=== PATIENT | male | born 1960 | race African-American/Black ===

== ENCOUNTER 2017-02-19 19:42 | Emergency (ER) | payer OTHER ==
--- NOTE | 2017-02-19 20:45 | ED Physician Chart ---
Chief Complaint/HPI - Patient Information Date Seen:: 02/19/17 Time Seen:: 19:53 Chief Complaint:: Pain and swelling noticed in R wrist region for about 4 days. 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 Pt has had above symptoms as above on awakening about 4 days ago. No fever. No known injury or trauma. Symptoms can be aggravated with R wrist movements. NO weakness or numbness. Allergies:: Allergies Allergy/AdvReac Type Severity Reaction Status Date / Time erythromycin base Allergy Verified 02/19/17 19:43 Vitals:: Vital Signs - 8 hr 02/19/17 19:44 Temp 98.8 F HR 76 RR 18 BP 146/76 O2 Sat % 100 Historian:: Patient Family MD/PCP:: Dr. Payan LMP:: N/A Review:: Nurse's Note Reviewed Review of Systems - Review of Systems General/Constitutional: No fever, No chills, No weight loss, No weakness, No diaphoresis, Edema (mild edema at R wrist region.), No loss of appetite Skin: No skin lesions, No rash, No bruising Head: No headache, No light-headedness Eyes: No loss of vision, No pain, No diplopia ENT: No earache, No nasal drainage, No sore throat, No tinnitus Neck: No neck pain, No swelling, No thyromegaly, No stiffness, No mass noted Cardio Vascular: No chest pain, No palpitations Pulmonary: No SOB, No cough, No wheezing GI: No nausea, No vomiting, No diarrhea, No pain G/U: No dysuria, No frequency, No hematuria Musculoskeletal: Bone or joint pain (R wrist), No back pain Endocrine: No polyuria, No polydipsia Psychiatric: Prior psych history, No depression, No suicidal ideation, No homicidal ideation, No auditory hallucination, No visual hallucination Hematopoietic: No bruising, No lymphadenopathy Allergic/Immuno: No urticaria, No angioedema Neurological: No syncope, No focal symptoms, No weakness, No paresthesia, No headache, No seizure, No dizziness, No confusion, No vertigo Past Medical History - Past Medical History Past Medical History: HTN Family History: Diabetes Melitus (MGM), HTN (Mother, brother) Social History: Non Smoker, No Alcohol, No Drug Use, , Employed, Other ( Lives with his .) Employment:: Nurse Surgical History: other (lipoma removed about 16 y/a. R knee arthoscopic surgery about 21 y/a. ?abdominal surgery related to a venous condition about 39 y/a.) Psychiatricy History: Depression Medication: Reviewed Family Medical History - Family Member Mother Name:: MICHAELA Age: 73 Ethnicity: Non- Living Status: Still Living Hx Family Cancer: No Hx Family Coronary Artery Disease: No Hx Family Congestive Heart Failure: No Hx Family Hypertension: Yes Hx Family Stroke: No Hx Family Diabetes: No Hx Family Seizures: No Hx Family Dementia: No Hx Family AIDS: No Hx Family HIV: No Hx Family COPD: No Hx Family Hepatitis: No Hx Family Psychiatric Problems: No Hx Family Tuberculosis: No Physical Exam - Physical Examination General/Constitutional: Awake, Well-developed, well-nourished, Alert, No distress, GCS 15, Non-toxic appearing, Ambulatory Other Gen/Cons comments:: Breathes comfortably, speaks clearly, interacts normally, and ambulates without difficulty. Head: Atraumatic Eyes: Lids, conjuctiva normal, PERRL, EOMI Skin: Nl inspection, No rash, No skin lesions, No ecchymosis, Well hydrated, No lymphadenopathy ENMT: External ears, nose nl, Nasal exam nl, Lips, teeth, gums nl, Oropharynx nl Neck: Nontender, Full ROM w/o pain, No nuchal rigidity, No mass, No stridor Respiratory: Nl effort/Exclusion, Clear to Auscultation, No Wheeze/Rhonchi/Rales Cardio Vascular: RRR, No murmur, gallop, rubs GI: No tenderness/rebounding/guarding, No organomegaly, No hernia, Normal BS's, Nondistended, No mass/bruits Other GI comments:: Obese but soft. Other Extremities comments:: RUE: Mild tendernes lateral aspect of distal forearm/wrist. Slight decrease ROM of R wrist due to pain. No gross deformity, erythema, open wound, unusual warmth , crepitus, or definite swelling. No detectable motor/sensory/vascular deficit. Good distal pulse and capillary refill. Neuro/Psych: Alert/oriented (oriented x 3), Judgement/insight normal, Mood normal, Normal gait, No focal deficits Labs/Radiology/EKG Results - Lab Results Results: Laboratory Results - last 24 hr 02/19/17 02/19/17 20:02 20:02 WBC 7.3 RBC 4.47 Hgb 14.5 Hct 42.9 MCV 95.9 MCH 32.4 H MCHC Differential 33.8 RDW 13.3 Plt Count 263 MPV 8.0 Neutrophils % 68.9 Lymphocytes % 18.9 L Monocytes % 8.8 Eosinophils % 3.4 Basophils % 0.0 Sodium 136 Potassium 3.8 Chloride 106 Carbon Dioxide 26.1 Anion Gap 7.7 BUN 18 Creatinine 1.4 H Est GFR ( Amer) > 60.0 Est GFR (Non-Af Amer) 55.9 BUN/Creatinine Ratio 12.9 Glucose 92 Calcium 10.4 H Total Bilirubin 1.0 AST 17 ALT 23 Alkaline Phosphatase 63 Total Protein 7.3 Albumin 4.2 Globulin 3.1 Albumin/Globulin Ratio 1.4 - Radiology Results Results: R wrist X-ray (4v.): Based on my interpretation, no acute fx or subluxation. Official report is pending. ED Septic Shock - . Is Septic Shock (SBP<90, OR Lactate>4 mmol\L) present?: No - <6hrs of presentation: Vital Signs: Vital Signs - 8 hr 02/19/17 19:44 Temp 98.8 F HR 76 RR 18 BP 146/76 O2 Sat % 100 Reassessment (Disposition) - Reassessment Reassessment:: 2140 Pt overall feels better. Lab results and R wrist X-ray just became available. Lab and X-ray findings have been reviewed with pt. Pt states that his creatinine is usually at 1.4 because he is muscular. Pt requests to go home now and does not want further observation/management in hospital. Aftercare instructions have been given. Reassessment Condition:: Improved - Diagnosis Diagnosis:: R wrist pain c/w R wrist strain, probably due to poor sleep posture. Stable and improved. - Aftercare/Follow up Instructions Aftercare/Follow-Up Instructions:: Refer to Discharge Instructions Notes:: Wear R wrist splint and arm sling as directed. May take Motrin 200 mg tab 4 tabs po q8h prn pain. Limit use of R wrist. Strain care instructions given. F/U with PCP Dr. Payan in 2-3 days for recheck with repeat lab study: BMP. Return to ER immediately if condition worsens or if any further questions/ problems. Medication Prescribed:: None - Patient Disposition Discharge/Transfer:: Home Time:: 21:45 Condition at Disposition:: Stable, Improved ED Discharge Plan - Patient Disposition Admit/Discharge/Transfer: PT DISCHARGED HOME Condition at Disposition: Stable Instructions: Muscle Strain, Tendinitis, [id number], Wrist Pain
[2017-02-19 21:11] LABS: % EOSINOPHILS 3.4 % (0.0-5.0); % LYMPHOCYTES 18.9 % (20.0-50.0); % MONOCYTES 8.8 % (2.0-10.0); % NEUTROPHILS 68.9 % (40.0-80.0); HEMATOCRIT 42.9 % (39.0-49.0); HEMOGLOBIN 14.5 gm/dL (13.2-17.3); MEAN CELL VOLUME 95.9 fl (80-99); MEAN CORPUSCULAR HEMOGLOBIN 32.4 pg (26.0-30.0); MEAN CORPUSCULAR HGB CONC 33.8 pg (28.0-36.0); NEUTROPHILE ABSOLUTE 5.1 Th/cmm (1.8-8.0); PLATELET COUNT 263 Th/cmm (150-400); RED BLOOD COUNT 4.47 Mil/cmm (4.30-5.70); RED CELL DISTRIBUTION WIDTH 13.3 % (11.5-20.0); WHITE BLOOD COUNT 7.3 Th/cmm (4.8-10.8)
[2017-02-19 21:26] LABS: ALB/GLOB RATIO 1.4 (1.0-1.8); ALKALINE PHOSPHATASE 63 U/L (34-104); ANION GAP 7.7 (7.0-16.0); BUN - UREA NITROGEN 18 mg/dL (7-25); BUN/CREATININE RATIO 12.9; CALCIUM SERUM 10.4 mg/dL (8.6-10.3); CARBON DIOXIDE 26.1 mEq/L (21.0-31.0); CHLORIDE 106 mEq/L (98-107); CREATININE - SERUM 1.4 mg/dL (0.7-1.3); GLUCOSE 92 mg/dL (70-105); POTASSIUM SERUM 3.8 mEq/L (3.5-5.1); SGOT 17 U/L (13-39); SGPT/ALT 23 U/L (7-52); SODIUM SERUM 136 mEq/L (136-145)
--- NOTE | 2017-02-20 11:11 | Diagnostic Imaging Report ---
Exam: right wrist joint 4 views HISTORY: right wrist pain Findings: Multiple views of right wrist joint reviewed. The study demonstrates no evidence of fracture dislocation subluxation. The radiocarpal joint is intact the carpal bones are normal. IMPRESSION: 1. Normal examination of the right wrist joint.
== END 2017-02-19 21:53 | disposition home or self-care (01) ==
LOC: ER 19:42 → EEVIPCON 19:42 → ER 21:53
DX: S66.911A Strain of unspecified muscle, fascia and tendon at wrist and hand level, right hand, initial encounter (principal); I10 Essential (primary) hypertension; Z88.1 Allergy status to other antibiotic agents; X58.XXXA Exposure to other specified factors, initial encounter; Y93.89 Activity, other specified; Y92.89 Other specified places as the place of occurrence of the external cause; Y99.8 Other external cause status
CPT/HCPCS: 36415-UA; 73110-TC-RT; 80053-TC; 85025-TC; Z7610

== ENCOUNTER 2017-04-05 14:28 | Outpatient (CLI) | payer OTHER | END 2017-04-05 15:00 | disposition home or self-care (01) | LOC: LAB 14:28 | PROVIDERS: ATTEND Internal Medicine | DX: M25.531 Pain in right wrist (principal) | CPT/HCPCS: 36415-UA; 85652-TC; 86430-90; 86592-TC ==